=== PATIENT | female | born 2000 | race Caucasian/White ===

== ENCOUNTER 2025-01-03 16:03 | Emergency (ER) | payer OTHER, BC ==
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
[2025-01-03] MEDS: ACETAMINOPHEN TAB 500 MG TAB PO STA (17:26)
[2025-01-03] MEDS: KETOROLAC 15 MG/ML 1 ML VIAL IM STA (17:27)
[2025-01-03] MEDS: LIDOCAINE 4% PATCH TOPICAL ONE (17:28)
[2025-01-03 17:38] VITALS: BP 115/78; PULSE 72; RESP 20; TEMP 97.9
== END 2025-01-03 17:37 | disposition home or self-care (01) ==
LOC: EC 16:03
DX: M54.50 Low back pain, unspecified (principal); W18.30XA Fall on same level, unspecified, initial encounter; Y99.0 Civilian activity done for income or pay
CPT/HCPCS: 99283; 96372; J1885

== ENCOUNTER → 2025-01-09 | Outpatient (CLI) | payer OTHER ==
--- NOTE | 2025-01-09 12:49 | XR ---
EXAMINATION TYPE: XR lumbar spine 2 or 3V DATE OF EXAM: 01/09/2025 CLINICAL HISTORY: pain TECHNIQUE: Three views of the lumbar spine are submitted. COMPARISON: None. FINDINGS: There are 5 lumbar type vertebral bodies identified. The lumbar spine shows satisfactory alignment w ithout evidence of acute fracture or dislocation. Vertebral body heights are within normal limits. Disc spaces are within normal limits. The overlying soft tissue appears unremarkable. IMPRESSION: No acute fracture or dislocation is seen in the lumbar spine. Consider further evaluation with CT if there is continued clinical concern. [facility], , 01/09/2025 12:47 PM
== END | disposition home or self-care (01) ==
LOC: RADXRMAIN 12:12
PROVIDERS: ATTEND Emergency Medicine
DX: S33.5XXD Sprain of ligaments of lumbar spine, subsequent encounter (principal)
CPT/HCPCS: 72100